=== PATIENT | male | born 1990 | race American Indian/Alaskan Native ===

== ENCOUNTER 2021-08-12 14:32 | Emergency (ER) | payer OTHER ==
[2021-08-12 16:37] VITALS: BP 134/87
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
== END 2021-08-12 18:54 | disposition home or self-care (01) ==
LOC: ED 14:32
DX: M79.644 Pain in right finger(s) (principal); F17.200 Nicotine dependence, unspecified, uncomplicated
CPT/HCPCS: 99283